=== PATIENT | female | born 1950 | race Caucasian/White ===

== ENCOUNTER 2018-10-12 15:14 | Outpatient (CLI) | payer BC | END 2018-10-12 15:15 | disposition home or self-care (01) | LOC: BICMAMMO 15:14 | PROVIDERS: ATTEND Family Medicine | DX: Z12.31 Encounter for screening mammogram for malignant neoplasm of breast (principal) | CPT/HCPCS: 77063; 77067 ==

== ENCOUNTER 2019-06-01 18:55 | Emergency (ER) | payer BC ==
[~2019-06-01 18:55] MED LIST: ISOVUE-370 76%-LOCM 1 ML ONE
[2019-06-01] MEDS ORDERED: Acetaminophen 500 MG TAB ONE (19:31)
[2019-06-01 19:39] LABS: Hemoglobin 14.4 g/dL (12.0-16.0); Mean Corpuscular HGB CONC 34.4 g/dL (32.0-36.0); Mean Corpuscular Hemoglobin 29.5 pg (27.0-31.0); Mean Corpuscular Volume 85.7 fL (78.0-98.0); Mean Platelet Volume 8.1 fL (7.4-10.4); Platelet Count 290 thou/uL (130-400); RBC Distribution Width 11.5 % (11.5-14.5); White Blood Cell (WBC) Count 15.4 thou/uL (4.8-10.8)
--- NOTE | 2019-06-01 19:49 | RAD ---
PORTABLE CHEST ONE VIEW: 06/01/19 at 7:33 p.m. HISTORY: Fever. FINDINGS: The heart size is borderline. No focal areas of consolidation, pneumothoraces, girish pulmonary edema, or pleural effusions are seen. There is elevation of the right hemidiaphragm. IMPRESSION: No acute process. POS: [facility]
[2019-06-01 19:55] LABS: Band 10 % (5-11); Lymphocytes 9 % (21-51); MDiff Complete? YES; Monocytes 8 % (0-10); Neutrophil 73 % (42-75)
[2019-06-01 19:59] LABS: ALT (SGPT) 13 U/L (8-55); AST (SGOT) 11 U/L (5-34); Albumin 4.2 g/dL (3.4-4.8); Alkaline Phosphatase 86 U/L (40-150); Anion Gap 15 mmol/L (10-20); BUN (Urea Nitrogen) 15 mg/dL (9.8-20.1); Bilirubin, Total 1.1 mg/dL (0.2-1.2); Calc. Creatinine Clearance 0 mL/min (70-130); Calcium 9.5 mg/dL (7.8-10.44); Carbon Dioxide 23 mmol/L (23-31); Chloride 100 mmol/L (98-107); Estimated GFR-MDRD 65; Globulin 3.4 g/dL (2.4-3.5); Glucose 112 mg/dL (80-115); Potassium 3.9 mmol/L (3.5-5.1); Protein, Total 7.6 g/dL (6.0-8.3); Sodium 134 mmol/L (136-145)
[2019-06-01] MEDS ORDERED: Piperacillin/Tazobactam 4.5 GM VIAL ONE (20:02)
[2019-06-01 20:19] LABS: Bilirubin Negative (Negative); Blood, Urine Trace (Negative); Clarity Clear (Clear); Glucose, Urine (Dipstick) Normal (Negative); Leukocyte Negative Leu/uL (Negative); Nitrite Negative (Negative); Protein, Urine (Dipstick) 20 mg/dL (Neg-Trace); Urobilinogen 3 mg/dL (Less than 2); WBC/HPF 0-3 HPF (0-3)
[2019-06-01 20:20] LABS: Bacteria/HPF 1+ HPF (None Seen)
--- NOTE | 2019-06-01 20:35 | CT ---
CT ABDOMEN AND PELVIS WITH IV CONTRAST: 06/01/19 HISTORY: Abdominal pain. FINDINGS: There are mild dependent changes of the lung bases. No free air, free fluid, or lymphadenopathy is se en in the abdomen or abdomen or pelvis. The patient is post cholecystectomy. The liver, spleen, pancr eas, adrenal glands and left kidney are normal. There is an 8 mm cortical cyst arising from the poste rior cortex of the right kidney. There is scarring in the inferior pole of the left kidney. The small bowel loops are not abnormally dilated. There is colonic diverticulosis. There is thickenin g of the wall of the sigmoid colon with pericolonic inflammatory changes consistent with diverticuli tis. No abnormally loculated fluid collection is seen to suggest abscess formation. There are vascular calcifications without evidence of aneurysmal dilatation of the abdominal aorta. A normal appearing appendix is seen. There are degenerative changes in the spine. IMPRESSION: Sigmoid diverticulitis. No evidence of abscess formation. POS: [facility]
[2019-06-01] MEDS ORDERED: Ibuprofen 200 MG TAB ONE (23:07)
== END 2019-06-01 23:13 | disposition home or self-care (01) ==
LOC: ERS 18:55
DX: K57.32 Diverticulitis of large intestine without perforation or abscess without bleeding (principal); F41.9 Anxiety disorder, unspecified; F32.9 Major depressive disorder, single episode, unspecified; Z79.899 Other long term (current) drug therapy
CPT/HCPCS: 71045; 74177; 80053; 81003; 81015; 83605; 83690; 85025; 87040; 87086; 93005; 96361; 96374; J2543; Q9966

== ENCOUNTER 2021-01-29 14:52 | Outpatient (CLI) | payer BC | END 2021-01-29 14:53 | disposition home or self-care (01) | LOC: BICMAMMO 14:52 | PROVIDERS: ATTEND Family Medicine | DX: Z12.31 Encounter for screening mammogram for malignant neoplasm of breast (principal) | CPT/HCPCS: 77063; 77067 ==

== ENCOUNTER 2021-02-18 12:09 | Outpatient (CLI) | payer BC | END 2021-02-18 12:10 | disposition home or self-care (01) | LOC: BICRAD 12:09 | PROVIDERS: ATTEND Internal Medicine Pulmonary Disease | DX: R06.00 Dyspnea, unspecified (principal) | CPT/HCPCS: 71046 ==

== ENCOUNTER 2021-02-26 14:26 | Outpatient (CLI) | payer BC | END 2021-02-26 14:27 | disposition home or self-care (01) | LOC: ULT 14:26 | PROVIDERS: ATTEND Family Medicine | DX: R00.0 Tachycardia, unspecified (principal); I08.1 Rheumatic disorders of both mitral and tricuspid valves | CPT/HCPCS: 93306 ==

== ENCOUNTER 2021-07-30 17:22 | Outpatient (CLI) | payer BC, MEDICARE ==
[2021-07-31 12:30] LABS: SARS-CoV-2 PCR by NAA Not Detected (NotDetected)
== END 2021-07-30 17:23 | disposition home or self-care (01) ==
LOC: LABBT 17:22
PROVIDERS: ATTEND Plastic Surgery
DX: Z01.812 Encounter for preprocedural laboratory examination (principal); Z20.822 Contact with and (suspected) exposure to COVID-19
CPT/HCPCS: U0003; U0005

== ENCOUNTER 2021-08-03 05:52 | Day surgery (SDC) | payer BC ==
[2021-07-31 13:35] VITALS: BMI 28.3
[2021-08-03] MEDS ORDERED: Heparin 5,000 UNITS/ML VIAL ONE (06:29)
[2021-08-03] MEDS ORDERED: ceFAZolin 2 GM/DEX 5% 100 ML BAG ONE ×2 (06:29)
[2021-08-03] MEDS ORDERED: EPINEPHrine 1 MG/ML AMP ONE (06:42)
[2021-08-03] MEDS ORDERED: Lidocaine 1% w/Epinephrine 1:100K 20 ML VIAL ONE (06:42)
[2021-08-03] MEDS ORDERED: PROPOFOL 60 ML ONE (06:59)
[2021-08-03] MEDS ORDERED: Fentanyl 100 MCG/2 ML VIAL ONE (06:59)
[2021-08-03] MEDS ORDERED: Famotidine/PF 20 mg/2ml Vial ONE (07:21)
[2021-08-03] MEDS ORDERED: PHENYLEPHRINE-NS 100 MCG/ML 10 ML SYRINGE ONE ×2 (07:36→08:39)
[2021-08-03] MEDS ORDERED: Ondansetron PF 4 MG/2 ML Vial ONE (07:36)
[2021-08-03] MEDS ORDERED: Lidocaine 1% PF 5 ML VIAL ONE (07:36)
[2021-08-03] MEDS ORDERED: PROPOFOL 200 MG/20 ML VIAL ONE (07:36)
[2021-08-03] MEDS ORDERED: Dexamethasone 20 MG/5 ML VIAL ONE (07:36)
[2021-08-03] MEDS ORDERED: Acetaminophen 500 MG TAB ONE (11:04)
== END 2021-08-03 11:30 | disposition home or self-care (01) ==
LOC: SDC 05:52
PROVIDERS: ATTEND Plastic Surgery
PROC: 080NXZZ Alteration of Right Upper Eyelid, External Approach (ICD-10-PCS; principal; 2021-08-03)
PROC: 0W020ZZ Alteration of Face, Open Approach (ICD-10-PCS; principal; 2021-08-03)
PROC: 080PXZZ Alteration of Left Upper Eyelid, External Approach (ICD-10-PCS; principal; 2021-08-03)
DX: Q10.0 Congenital ptosis (principal); J44.9 Chronic obstructive pulmonary disease, unspecified; Z79.899 Other long term (current) drug therapy
CPT/HCPCS: J0171; J1100; J1644; J2405; J2704; J3010; S0028

== ENCOUNTER 2022-04-21 14:32 | Outpatient (CLI) | payer BC | END 2022-04-21 14:33 | disposition home or self-care (01) | LOC: SCSMRI 14:32 | PROVIDERS: ATTEND Family Medicine | DX: M25.562 Pain in left knee (principal); M71.22 Synovial cyst of popliteal space [Baker], left knee; S83.282A Other tear of lateral meniscus, current injury, left knee, initial encounter ==

== ENCOUNTER 2023-06-10 13:07 | Outpatient (CLI) | payer BC | END 2023-06-10 13:08 | disposition home or self-care (01) | LOC: BICMAMMO 13:07 | PROVIDERS: ATTEND Family Medicine | DX: Z12.31 Encounter for screening mammogram for malignant neoplasm of breast (principal) | CPT/HCPCS: 77063; 77067 ==

== ENCOUNTER 2023-07-29 09:17 | Outpatient (CLI) | payer BC | END 2023-07-29 09:18 | disposition home or self-care (01) | LOC: BICMAMMO 09:17 | PROVIDERS: ATTEND Family Medicine | DX: Z13.820 Encounter for screening for osteoporosis (principal); M85.88 Other specified disorders of bone density and structure, other site; Z78.0 Asymptomatic menopausal state | CPT/HCPCS: 77080 ==